=== PATIENT | female | born 1945 | race Caucasian/White ===

== ENCOUNTER 2022-03-22 13:04 | Emergency (ER) | payer MEDICARE, BC ==
[2022-03-22] MEDS ORDERED: Ondansetron 4 MG/2 ML SDV IVPUSH ONE (13:29)
[2022-03-22] MEDS ORDERED: Sodium Chloride 0.9% 1,000 ML IV ONE (13:29)
[2022-03-22] MEDS ORDERED: Ketorolac 30 MG/ML SDV IVPUSH ONE (13:29)
[2022-03-22 14:20] LABS: ANION GAP 9.1 mEq/L (7-13); CHLORIDE,CL 103 mmol/L (98-107); SODIUM,NA 138 mmol/L (136-145)
[2022-03-22 14:35] LABS: ESTIMATED GFR 49 mL/min (>=60)
[2022-03-22] MEDS ORDERED: Tamsulosin 0.4 MG Cap.ER PO ONE (14:42)
[2022-03-22] MEDS ORDERED: Metoclopramide 10 MG/2 ML SDV IVPUSH ONE (14:53)
== END 2022-03-22 16:38 ==
LOC: DL.ED 13:04
DX: N13.2 Hydronephrosis with renal and ureteral calculous obstruction (principal); K57.30 Diverticulosis of large intestine without perforation or abscess without bleeding; K68.9 Other disorders of retroperitoneum; N28.1 Cyst of kidney, acquired
CPT/HCPCS: 36415; 74176; 80053; 81001; 82150; 83605; 83690; 85025; 86140; 87086; 96361; 96374; 96375; 99285; A9270; J1885; J2405; J2765; J7030